=== PATIENT | female | born 2000 | race African-American/Black ===

== ENCOUNTER 2021-12-05 13:11 | Emergency (ER) | payer OTHER, SELFPAY ==
[2021-12-05] MEDS ORDERED: Fluconazole 100 MG TAB PO SCH (14:30)
== END 2021-12-05 14:35 | disposition home or self-care (01) ==
LOC: CSHERS 13:11
DX: L30.9 Dermatitis, unspecified (principal); B35.9 Dermatophytosis, unspecified
CPT/HCPCS: 99282

== ENCOUNTER 2022-02-18 18:12 | Emergency (ER) | payer OTHER, SELFPAY ==
[2022-02-18 19:37] LABS: Bilirubin Neg (Negative); Blood, Urine 10 (Negative); Clarity Slightly Cloudy (Clear); Glucose, Urine (Dipstick) Normal (Negative); Ketone, Urine 5 mg/dL (Negative); Leukocyte 25 (Negative); Nitrite Negative (Negative); Protein, Urine (Dipstick) 15 mg/dl (Neg-Trace)
[2022-02-18 19:39] LABS: #Eosinphils 0.1 10x3/uL (0.0-0.5); #Monocytes 0.8 10x3/uL (0.0-1.1); #Neutrophils 4.9 10x3/uL (1.5-8.4); %Basophils 0.3 % (0.0-2.0); %Eosinophils 1.7 % (0.0-6.0); %Lymphocytes 22.5 % (18.0-47.0); %Monocytes 10.2 % (0.0-10.0); %Neutrophils 64.9 % (40.0-75.0); Hemoglobin 11.4 g/dL (12.0-15.5); Mean Corpuscular HGB CONC 34.5 g/dL (32.0-36.0); Mean Corpuscular Volume 95.7 fl (81.6-98.3); Platelet Count 204 10x3/uL (150-450); RBC Distribution Width 13.2 % (11.5-14.5); Red Blood Cell (RBC) Count 3.45 10x6/uL (3.90-5.03); White Blood Cell (WBC) Count 7.6 10x3/uL (3.5-10.5)
[2022-02-18 19:46] LABS: Bacteria/HPF 2+ HPF (None Seen); Epithelial Cast 0-3 LPF (None Seen); RBC/HPF 0-3 HPF (0-3); Transitional Epithelial 0-3 HPF (None Seen)
[2022-02-18 19:47] LABS: Calcium Oxalate Crystals Rare HPF (None Seen)
[2022-02-18 19:59] LABS: ALT (SGPT) 17 U/L (8-55); AST (SGOT) 18 U/L (5-34); Albumin 3.5 g/dL (3.5-5.0); Alkaline Phosphatase 48 U/L (40-100); Anion Gap 12 mmol/L (10-20); BUN (Urea Nitrogen) 5 mg/dL (7.0-18.7); Bilirubin, Total 0.2 mg/dL (0.2-1.2); Calc. Creatinine Clearance 0 mL/min (70-130); Calcium 8.7 mg/dL (7.8-10.44); Carbon Dioxide 22 mmol/L (22-29); Chloride 106 mmol/L (98-107); Estimated GFR 130; Globulin 2.7 g/dL (2.4-3.5); Glucose 77 mg/dL (70-105); Potassium 3.7 mmol/L (3.5-5.1); Protein, Total 6.2 g/dL (6.0-8.3); Sodium 136 mmol/L (136-145)
[2022-02-18] MEDS ORDERED: Acetaminophen 500 MG TAB ONE (20:59)
[2022-02-18] MEDS ORDERED: Cephalexin 250 MG CAP ONE (21:10)
[2022-02-20 11:49] LABS: Chlamydia by PCR Not Detected (NotDetected); GC by PCR Not Detected (NotDetected)
== END 2022-02-18 21:50 | disposition home or self-care (01) ==
LOC: CSHERS 18:12
DX: O23.42 Unspecified infection of urinary tract in pregnancy, second trimester (principal); N39.0 Urinary tract infection, site not specified; Z3A.17 17 weeks gestation of pregnancy
CPT/HCPCS: 76856; 80053; 81003; 81015; 85025; 86900; 86901; 87086; 87480; 87491; 87510; 87591; 87660